=== PATIENT | male | born 1970 | race American Indian/Alaskan Native ===

== ENCOUNTER 2018-05-06 15:52 | Emergency (ER) | payer OTHER ==
[2018-05-06] MEDS ORDERED: MOTRIN PO ONE (16:17)
[2018-05-06 16:18] VITALS: BP 130/89
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
== END 2018-05-06 18:26 | disposition home or self-care (01) ==
LOC: ED 15:52
DX: S09.90XA Unspecified injury of head, initial encounter (principal); M54.6 Pain in thoracic spine; V49.49XA Driver injured in collision with other motor vehicles in traffic accident, initial encounter; Y93.89 Activity, other specified; Y92.89 Other specified places as the place of occurrence of the external cause; Y99.8 Other external cause status
CPT/HCPCS: 70450; 99283